=== PATIENT | female | born 1990 | race Caucasian/White ===

== ENCOUNTER 2016-11-20 18:12 | Emergency (ER) | payer MEDICAID ==
[~2016-11-20] VITALS: Ht 167.6 cm; Wt 100.0 kg
[~2016-11-20 18:12] MED LIST: MACR100C PO
[2016-11-20 18:15] VITALS: BP 144/96; PULSE 104; RESP 18; TEMP 98.2; O2SAT 98
[2016-11-20] MEDS ORDERED: SODIUM CHLOR 0.9% 1000 ML INJ 1,000 ML IV SCH (21:01)
[2016-11-20 21:03] VITALS: BP 146/85; PULSE 93; RESP 18; O2SAT 100
[2016-11-20] MEDS ORDERED: CALNTAB PO (21:03)
--- NOTE | 2016-11-20 21:04 | PD ---
HPI Chief Complaint: Abdominal Pain Time Seen by Provider: 20:54 Travel History International Travel<30 days: No Contact w/Intl Traveler<30days: No Traveled to known affect area: No History of Present Illness HPI 26-year-old female presently 15 weeks here for evaluation of nausea, vomiting, right lower quadrant abdominal pain. Symptoms have been worsening over the last 4 days. She has had subjective fevers and chills. History of stillborn. History of cholecystectomy. She denies urinary symptoms. No vaginal bleeding or discharge. She occasionally notices some specks of blood in her emesis. Diarrhea is nonbloody. Right lower quadrant abdominal pain described as pressure, constant, 8 out of 10, worse with movement and palpation. 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 PFS Past Medical History Medical History: Denies Significant Hx Hx Anticoagulant Therapy: No Cardiovascular Problems: No Chemotherapy: No Cerebrovascular Accident: No Diabetes: No Diminished Hearing: No Respiratory: No Immunizations Current: No Tetanus Vaccination: Unknown Influenza Vaccination: Yes ?: LMP: 08/04/2016 : 3 Para: 1 Miscarriage: 1 Past Surgical History Section: Yes Cholecystectomy: Yes (March 01, 2016) Other Surgery: Yes Social History Alcohol Use: No Tobacco Use: No Substance Use: No Allergies-Medications (Allergen,Severity, Reaction): Coded Allergies: No Known Allergies (Verified , 04/13/16) Reported Meds & Prescriptions Reported Meds & Active Scripts Active Reported Calna ( Vitamin) 1 Tab Tab 1 Tab PO DAILY Review of Systems Except as stated in HPI: all other systems reviewed are Neg Physical Exam Narrative GENERAL: Well-developed, well-nourished, comfortable, no acute distress. SKIN: Warm and dry. No rash. HEAD: Atraumatic. Normocephalic. EYES: Pupils equal and round. No scleral icterus. No injection or drainage. ENT: Mucous membranes pink and moist. CARDIOVASCULAR: Regular rate and rhythm. RESPIRATORY: No accessory muscle use. Clear to auscultation. Breath sounds equal bilaterally. GASTROINTESTINAL: Abdomen soft, nondistended. Right lower quadrant and superpubic tenderness without rebound or guarding. Rest of abdomen is soft and nontender. Normal bowel sounds. MUSCULOSKELETAL: No obvious deformities. No clubbing. No cyanosis. No edema. NEUROLOGICAL: Awake and alert. No obvious cranial nerve deficits. Motor grossly within normal limits. Normal speech. PSYCHIATRIC: Appropriate mood and affect; insight and judgment normal. Data Data Last Documented VS Vital Signs Date Time Temp Pulse Resp B/P Pulse Ox O2 Delivery O2 Flow Rate FiO2 11/20/16 21:03 93 18 146/85 100 Room Air 11/20/16 18:15 98.2 Orders Complete Blood Count With Diff (11/20/16 21:01) Comprehensive Metabolic Panel (11/20/16 21:01) Lipase (11/20/16 21:01) Prothrombin Time / Inr (Pt) (11/20/16 21:01) Act Partial Throm Time (Ptt) (11/20/16 21:01) Urinalysis - C+S If Indicated (11/20/16 21:) Iv Access Insert/Monitor (11/20/16 21:01) Ecg Monitoring (11/20/16 21:01) Oximetry (11/20/16 21:01) Ondansetron Inj (Zofran Inj) (11/20/16 21:15) Sodium Chlor 0.9% 1000 Ml Inj (Ns 1000 M (11/20/16 21:01) Sodium Chloride 0.9% Flush (Ns Flush) (11/20/16 21:15) Influenzae A/B Antigen (11/20/16 21:47) Nitrofurantoin Monohyd Macrocr (Macrobid (11/20/16 23:00) Labs Laboratory Tests Test 11/20/16 21:15 White Blood Count 8.8 TH/MM3 Red Blood Count 4.05 MIL/MM3 Hemoglobin 12.5 GM/DL Hematocrit 35.7 % Mean Corpuscular Volume 88.0 FL Mean Corpuscular Hemoglobin 30.8 PG Mean Corpuscular Hemoglobin 34.9 % Concent Red Cell Distribution Width 13.6 % Platelet Count 363 TH/MM3 Mean Platelet Volume 7.5 FL Neutrophils (%) (Auto) 60.9 % Lymphocytes (%) (Auto) 31.4 % Monocytes (%) (Auto) 6.1 % Eosinophils (%) (Auto) 1.0 % Basophils (%) (Auto) 0.6 % Neutrophils # (Auto) 5.4 TH/MM3 Lymphocytes # (Auto) 2.8 TH/MM3 Monocytes # (Auto) 0.5 TH/MM3 Eosinophils # (Auto) 0.1 TH/MM3 Basophils # (Auto) 0.1 TH/MM3 CBC Comment DIFF FINAL Differential Comment Prothrombin Time 10.3 SEC Prothromb Time International 0.9 RATIO Ratio Activated Partial 26.5 SEC Thromboplast Time Urine Color YELLOW Urine Turbidity HAZY Urine pH 6.5 Urine Specific [place] 1.016 Urine Protein NEG mg/dL Urine Glucose (UA) NEG mg/dL Urine Ketones NEG mg/dL Urine Occult Blood NEG Urine Nitrite NEG Urine Bilirubin NEG Urine Urobilinogen LESS THAN 2.0 MG/DL Urine Leukocyte Esterase NEG Urine RBC 1 /hpf Urine WBC 3 /hpf Urine Squamous Epithelial 1 /hpf Cells Urine Amorphous Sediment RARE Urine Bacteria RARE /hpf Urine Mucus FEW /lpf Microscopic Urinalysis Comment CULT NOT INDICATED Sodium Level 140 MEQ/L Potassium Level 3.7 MEQ/L Chloride Level 106 MEQ/L Carbon Dioxide Level 25.3 MEQ/L Anion Gap 9 MEQ/L Blood Urea Nitrogen 6 MG/DL Creatinine 0.60 MG/DL Estimat Glomerular Filtration 122 ML/MIN Rate Random Glucose 78 MG/DL Calcium Level 8.4 MG/DL Total Bilirubin 0.2 MG/DL Aspartate Amino Transf 15 U/L (AST/SGOT) Alanine Aminotransferase 45 U/L (ALT/SGPT) Alkaline Phosphatase 68 U/L Total Protein 7.4 GM/DL Albumin 3.4 GM/DL Lipase 102 U/L [facility] Medical Decision Making Medical Screen Exam Complete: Yes Emergency Medical Condition: Yes Differential Diagnosis Appendicitis, ovarian cyst, ovarian torsion, UTI, cystitis, colitis, round ligament pain, gastroenteritis Narrative Course Initial vital signs show heart rate of 104 which improved to 93 with a liter of IV fluids, blood pressure 144/96, pulse ox 98% on room air, oral temp of 98.2F. CBC is unremarkable. CMP is unremarkable. Lipase is 102. UA shows red bacteria, negative nitrites, negative leukocyte esterase Influenza is negative. Bedside transabdominal ultrasound performed by wa shows a large IUP with a heart rate of 169 bpm. Upon reassessment the patient is resting comfortably. She does have some mild right lower quadrant tenderness. No peritoneal signs. No rebound or guarding. I do not believe she has appendicitis. She is afebrile. WBC count is normal. Her pain is most likely secondary to round ligament pain. She also has signs and symptoms consistent with gastroenteritis. She was given a liter of IV fluids and IV antiemetics and is feeling a lot better. She'll be started on Macrobid for her bacteriuria in . She is stable for discharge home with outpatient follow-up with her [employer] doctor this week. She was informed on when to return to the emergency department patient verbalizes understanding and agreement with plan. Procedures Procedure Narrative Bedside transabdominal ultrasound: Using the curvilinear probe, a large IUP was confirmed. heart rate was 169 bpm. Diagnosis Primary Impression: Abdominal pain affecting Additional Impression: Bacteriuria during Referrals: Safety Scientist 3 days Additional Instructions: Follow-up with your [employer] doctor this week. Return to the emergency department for worsening symptoms or any other concerns. Scripts Ondansetron Odt (Zofran Odt)4 Mg Tab4 Mg SL Q8HR PRN (Nausea/Vomiting) #10 TAB Ref 0 Prov:David Baptiste MD 11/20/16 Nitrofurantoin Monohydrate Macrocrystals (Macrobid)100 Mg [id number] Mg PO BID 7 Days Ref 0 Prov:David Baptiste MD 11/20/16 Disposition: 01 DISCHARGE HOME Condition: Stable David Baptiste MD Nov 20, 2016 21:04
[2016-11-20] MEDS ORDERED: ONDANSETRON HCL 4 MG/2 ML VIAL IVP ONE (21:15)
[2016-11-20] MEDS ORDERED: SODIUM CHLORIDE 0.9% FLUSH 5 ML FLUSH IVF PRN (21:15)
[2016-11-20 21:40] LABS: AUTOMATED NEUTROPHIL # 5.4 TH/MM3 (1.8-7.7); BASOPHIL # 0.1 TH/MM3 (0-0.2); BASOPHIL % 0.6 % (0.0-2.0); EOSINOPHIL # 0.1 TH/MM3 (0-0.4); HEMATOCRIT 35.7 % (35.0-46.0); HEMO FLAGS DIFF FINAL; LYMPH % 31.4 % (9.0-44.0); LYMPHOCYTE # 2.8 TH/MM3 (1.0-4.8); MEAN CORPUSCULAR HEMOGLOBIN 30.8 PG (27.0-34.0); MEAN CORPUSCULAR HGB CONC 34.9 % (32.0-36.0); MONO % 6.1 % (0.0-8.0); NEUT % 60.9 % (16.0-70.0); PLATELET COUNT 363 TH/MM3 (150-450); RED BLOOD COUNT 4.05 MIL/MM3 (4.00-5.30); RED CELL DISTRIBUTION WIDTH 13.6 % (11.6-17.2); WHITE BLOOD COUNT 8.8 TH/MM3 (4.0-11.0)
[2016-11-20 21:47] LABS: BACTERIA, URINE RARE /hpf; BLOOD, URINE NEG (NEG); COMMENT (UR) CULT NOT INDICATED; CULTURE IF INDICATED CULT NOT INDICATED; GLUCOSE,URINE NEG (NEG); KETONE, URINE NEG (NEG); MUCUS URINE FEW /lpf (OCC); NITRITE,URINE NEG (NEG); PH, URINE 6.5 (5.0-8.5); SQUAMOUS EPITHELIAL CELL URINE 1 /hpf (0-5); URINE COLOR YELLOW (YELLW/STRAW)
[2016-11-20 21:53] LABS: APTT (PATIENT) 26.5 SEC (24.3-30.1); INTERNATIONAL NORMALIZED RATIO 0.9 RATIO; PROTHROMBIN TIME - PATIENT 10.3 SEC (9.8-11.6)
[2016-11-20 22:05] LABS: ANION GAP 9 MEQ/L (5-15); AST (GOT) 15 U/L (15-37); BICARBONATE 25.3 MEQ/L (21.0-32.0); BLOOD UREA NITROGEN 6 MG/DL (7-18); CHLORIDE 106 MEQ/L (98-107); GLOMERULAR FILTRATION RATE 122 ML/MIN (>89); POTASSIUM 3.7 MEQ/L (3.5-5.1); SODIUM (NA) 140 MEQ/L (136-145)
[2016-11-20 22:08] LABS: ALKALINE PHOSPHATASE 68 U/L (45-117); ALT (GPT) 45 U/L (10-53); TOTAL BILIRUBIN ADULT 0.2 MG/DL (0.2-1.0)
[2016-11-20] MEDS ORDERED: ZOFR4TAB3 SL (22:52)
[2016-11-20] MEDS ORDERED: MACR100C2 PO (22:52)
[2016-11-20] MEDS ORDERED: NITROFURANTOIN MONOHYD MACROCR 100 MG CAP PO ONE (23:00)
[2016-11-20 23:02] VITALS: BP 137/68
== END 2016-11-20 23:11 | disposition home or self-care (01) ==
LOC: NEPC 18:12
DX: R10.31 Right lower quadrant pain (principal); R82.71 Bacteriuria; O26.92 Pregnancy related conditions, unspecified, second trimester; Z3A.15 15 weeks gestation of pregnancy
CPT/HCPCS: 80053; 81001; 83690; 85025; 85610; 85730; 87804; 96374; 99284; J2405; J7030

== ENCOUNTER 2017-01-23 13:35 | Emergency (ER) | payer MEDICAID ==
[~2017-01-23 13:35] MED LIST changes: +CALNTAB PO; -MACR100C PO; +MACR100C2 PO; +ZOFR4TAB3 SL
--- NOTE | 2017-01-23 14:18 | PD ---
HPI Chief Complaint Vaginal bleeding Date Seen: Jan 23, 2017 Time Seen: 14:11 Travel History International Travel<30 Days: No Contact w/Intl Traveler<30Days: No Known Affected Area: No History of Present Illness HPI 27-year-old female who is at 24 weeks and 2 days based on an estimated due date of 05/13/2017. Patient complains of vaginal bleeding that she noticed at midnight last night and continued spotting that seems to have dissipated. Denies abdominal pain contractions vaginal discharge. Patient sees [facility] and had her last ultrasound 4 days ago which was normal. She has history of a stillborn at 20 weeks with her last . Denies any complications. Para: 1 : 3 Miscarriage: 1 History Past Medical History Medical History: Denies Significant Hx Obstetric History Obstetric History Spontaneous vaginal delivery with her first, stillborn delivered vaginally with her second Past Surgical History Surgical History: No Previous Surgery Family History Family History: Negative Social History Alcohol Use: No Tobacco Use: No Substance Abuse: No Allergies-Medications (Allergen,Severity, Reaction): Coded Allergies: No Known Allergies (Verified , 04/13/16) Home Meds Active Scripts Ondansetron Odt (Zofran Odt)4 Mg Tab4 Mg SL Q8HR PRN (Nausea/Vomiting) #10 TAB Ref 0 Prov:David Baptiste MD 11/20/16 Nitrofurantoin Monohydrate Macrocrystals (Macrobid)100 Mg [id number] Mg PO BID 7 Days Ref 0 Prov:David Baptiste MD 11/20/16 Reported Medications Vitamin (Calna)1 Tab Tab1 Tab PO DAILY 11/20/16 Review of Systems Except as stated in HPI: all other systems reviewed are Neg Physical Exam Narrative GENERAL: Well-nourished, well-developed patient. SKIN: Warm and dry. HEAD: Normocephalic and atraumatic. EYES: No scleral icterus. No injection or drainage. ENT: No nasal drainage noted. Mucous membranes pink. Airway patent. NECK: Supple, trachea midline. No JVD. CARDIOVASCULAR: Regular rate and rhythm without murmurs, gallops, or rubs. RESPIRATORY: Breath sounds equal bilaterally. No accessory muscle use. BREASTS: Bilateral exam showed no masses , no retractions, no nipple discharge. ABDOMEN/GI: Abdomen soft, non-tender, bowel sounds present, no rebound, no guarding Gravid to [-] weeks size Fundal Height: [24-] GENITOURINARY: External Genitalia: intact and normal in appearance. Some white discharge noted vaginally but there is no blood or brown discharge seen. BUS glands: [Normal-] Cervix: [-Posterior] Dilatation: Closed Effacement: Long Station: High Presentation: - Membranes: Intact Uterine Contractions: Absent FHT's: Category: [1-] Baseline: [-130] Reactive: - Reactive Variability: Reactive Decels: Absent EXTREMITIES: No cyanosis or edema. BACK: Nontender without obvious deformity. No CVA tenderness. NEUROLOGICAL: Awake and alert. Motor and sensory grossly within normal limits. Five out of 5 muscle strength in all muscle groups. Normal speech. Data Data Vital Signs Reviewed: Yes MDM Medical Record Reviewed: Yes Plan 27-year-old female who is at 24-25 weeks' gestation with a recent history of vaginal bleeding which is now resolved no active bleeding presently no signs of old blood. Recent sono within the past week was normal No signs of labor at this time. Follow-up with OB provider next week Diagnosis Diagnosis: Primary Impression: Vaginal bleeding during , antepartum Additional Impressions: 24 weeks gestation of History of stillbirth Disposition: DISCHARGE HOME Sabrina Flores MD Jan 23, 2017 14:18
== END 2017-01-23 14:25 | disposition home or self-care (01) ==
LOC: HOBED 13:35
DX: O46.92 Antepartum hemorrhage, unspecified, second trimester (principal); Z3A.24 24 weeks gestation of pregnancy
CPT/HCPCS: 99284